=== PATIENT | female | born 1955 ===

== ENCOUNTER 2020-05-02 13:45 | Outpatient (CLI) | payer BC ==
--- NOTE | 2020-05-02 13:59 | RAD ---
XR Shoulder Rt 3 View STANDARD History: Pain Comparison: None. Findings: No acute fracture or malalignment. Ribs are intact. Mild subacromial space narrowing. Impression: No acute osseous abnormality.
== END 2020-05-02 13:46 | disposition home or self-care (01) ==
LOC: RAD-FRANK 13:45
PROVIDERS: ATTEND Nurse Practitioner Family
DX: M25.511 Pain in right shoulder (principal)